=== PATIENT | male | born 1955 | race Caucasian/White ===

== ENCOUNTER 2021-02-25 10:27 | Day surgery (SDC) | payer MEDICARE, MEDICAID ==
[2021-02-22 10:09] LABS: COVID AG,FIA SOURCE NASOPHARYNGEAL
[~2021-02-25] VITALS: Ht 170.2 cm; Wt 66.8 kg
[~2021-02-25 10:27] MED LIST: ATOR40TA28 PO; BUPIVACAINE HCL/PF 0.75% 10 ML VIAL ONE; GABA-1216 PO; HYALURONIDASE, HUMAN RECOMB. 150 UNITS/ML ONE; LACO100 PO; LEVE500T53 PO; LIDOCAINE 2%/EPI 1:200,000/PF 20 ML VIAL ONE; LINA145C PO; LOSA50TA37 PO; METF-960 PO; MitoMYcin 0.2 MG/VIAL KIT FOR OPHTHALMIC USE OS ONE; PRIM250T3 PO; PRIM50 PO; PROP20TA18 PO; RINGERS SOLUTION,LACTATED 500 ML IV ONE
[2021-02-25] MEDS ORDERED: RINGERS SOLUTION,LACTATED 500 ML IV ONE (10:40)
[2021-02-25] MEDS ORDERED: MOXIFLOXACIN HCL 0.5% 3 ML OPHTHALMIC SOLUTION ONE ×2 (10:40→11:56)
[2021-02-25] MEDS ORDERED: FLUT16H NASAL (11:09)
[2021-02-25] MEDS ORDERED: COMB5OS OU (11:09)
[2021-02-25] MEDS ORDERED: NETA2.5D3 OU (11:09)
[2021-02-25] MEDS ORDERED: PROP60SR PO (11:09)
[2021-02-25 11:39] LABS: GLUCOMETER DEV NAME(LOC) SDS.; GLUCOSE,POINT OF CARE 111 MG/DL (70-110)
[2021-02-25] MEDS: MOXIFLOXACIN HCL 0.5% 3 ML OPHTHALMIC SOLUTION OS SCH ×3 (11:47→12:03)
[2021-02-25] MEDS ORDERED: PROPOFOL 1% 20 ML VIAL IVP ONE (12:00)
== END 2021-02-25 13:20 | disposition home or self-care (01) ==
LOC: SURGERY 10:27
PROVIDERS: ATTEND Ophthalmology
DX: E11.39 Type 2 diabetes mellitus with other diabetic ophthalmic complication (principal); H40.1123 Primary open-angle glaucoma, left eye, severe stage; H35.3131 Nonexudative age-related macular degeneration, bilateral, early dry stage; Z79.899 Other long term (current) drug therapy; Z93.3 Colostomy status; Z98.890 Other specified postprocedural states
CPT/HCPCS: 66710; 82962; 87426; 93005; C9803; J2704; J7120; A9575; J3473; J3490